=== PATIENT | male | born 1980 | race Caucasian/White ===

== ENCOUNTER 2021-01-02 10:16 | Emergency (ER) | payer OTHER ==
[2021-01-02 11:40] LABS: HEMOGLOBIN 15.1 gm/dl (14.0-17.5); RED BLOOD COUNT 4.51 M/UL (4.20-5.50); WHITE BLOOD COUNT 10.8 K/UL (4.5-11.0)
[2021-01-02 12:02] LABS: BUN/CREATININE RATIO 18 (0-10)
[2021-01-02] MEDS ORDERED: PROAIR HFA8.5 GM INH (12:42)
== END 2021-01-02 12:52 | disposition home or self-care (01) ==
LOC: ER1 10:16
PROVIDERS: Physician Assistant
DX: U07.1 COVID-19 (principal); J12.82 Pneumonia due to coronavirus disease 2019; F17.290 Nicotine dependence, other tobacco product, uncomplicated; Z79.899 Other long term (current) drug therapy
CPT/HCPCS: 71045; 80053; 82550; 82553; 83874; 84484; 85025; 85379; 87081; 87880; 93005; 99284